=== PATIENT | female | born 1955 | race Caucasian/White ===

== ENCOUNTER 2017-11-02 12:42 | Emergency (ER) | payer OTHER, BC, SELFPAY ==
--- NOTE | 2017-11-02 13:02 | EDM.PDOC ---
ED HPI GENERAL MEDICAL PROBLEM - General Chief Complaint: Back Pain or Injury Stated Complaint: BACK PAIN/RIGHT HAND TINGLING Time Seen by Provider: 11/02/17 13:02 Source of Information: Reports: Patient History Limitations: Reports: No Limitations - History of Present Illness INITIAL COMMENTS - FREE TEXT/NARRATIVE: 62-year-old female presents to the ED with plans of right upper extremity paresthesias mostly in her forearm but does radiate up to her shoulder and she is aware of them in her hand. She's not had this before she woke up with this discomfort this morning. There is no neurological deficit in terms she is right handed dominant and she can feed herself etc. She's also complaining of upper right mid back pain. No known injuries. 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 She usually sleeps flat on her back on a twin bed. Onset: Today, Gradual Onset Date: 10/31/17 (Pain is been present in her upper back for 2 days. Her hand symptoms and arm symptoms started today since she awoke.) Duration: Hour(s): Location: Reports: Back (Right upper back), Upper Extremity, Right (Right upper extremity paresthesias.) Quality: Reports: Ache, Stabbing, Other Severity: Moderate (Hurts to take a deep breath pain is constant and sometimes feels like a hot poker or knife stabbing her in the back.) Improves with: Reports: None Worsens with: Reports: Other (Deep breathing), Movement Context: Reports: Lifting (Likely work-related injury from lifting pushing and pulling), Other. Denies: Activity, Exercise, Sick Contact, Trauma Associated Symptoms: Denies: No Other Symptoms, Confusion, Chest Pain, Cough, cough w sputum, Diaphoresis, Fever/Chills, Headaches, Loss of Appetite, Malaise , Nausea/Vomiting, Rash, Seizure, Shortness of Breath, Syncope, Weakness Treatments PHYSICAL THERAPY MANAGER: Reports: Acetaminophen Middle Back Pain Score (Numeric/FACES): 7 - Related Data Allergies Allergy/AdvReac Type Severity Reaction Status Date / Time No Known Allergies Allergy Verified 11/02/17 13:01 Home Meds: Home Meds Diclofenac Sodium [Voltaren] 50 mg PO TIDMEALS #15 tab.ec 11/02/17 [Rx] oxyCODONE HCl/Acetaminophen [Percocet 5-325 mg Tablet] 1 - 2 each PO Q4H PRN # 15 tablet 11/02/17 [Rx] Past Medical History Musculoskeletal History: Reports: Back Pain, Chronic, Osteoarthritis ( Intermittent problems with low back.) Social & Family History - Living Situation & Occupation Living situation: Reports: Occupation: Employed ED ROS GENERAL - Review of Systems Review Of Systems: See Below Constitutional: Reports: Malaise. Denies: Fever, Chills, Weakness, Fatigue, Diaphoresis, Decreased Appetite, Weight Loss HEENT: Reports: No Symptoms Respiratory: Reports: Pleuritic Chest Pain. Denies: Shortness of Breath, Cough , Sputum, Hemoptysis Cardiovascular: Reports: No Symptoms Endocrine: Reports: No Symptoms GI/Abdominal: Reports: No Symptoms : Reports: No Symptoms Musculoskeletal: Reports: Back Pain (Right mid upper back pain constant with intermittent spasms.). Denies: Neck Pain ( Pain does not radiate through her chest. Seems to radiate into her right upper extremity and down to her hand. Denies any neck pain) Skin: Reports: No Symptoms Neurological: Reports: Paresthesia (In the distribution of her right arm but follows no) Psychiatric: Reports: No Symptoms Hematologic/Lymphatic: Reports: No Symptoms Immunologic: Reports: No Symptoms ED EXAM,LOWER BACK PAIN/INJURY - Physical Exam Exam: See Below Exam Limited By: No Limitations General Appearance: Alert, WD/WN, Moderate Distress (Appears to be in discomfort.) Eye Exam: Bilateral Eye: Normal Inspection Throat/Mouth: Normal Inspection, Normal Lips, Normal Teeth, Normal Gums, Normal Oropharynx, Normal Voice Head: Atraumatic, Normocephalic Neck: Normal Inspection, Supple, Non-Tender, Full Range of Motion Respiratory/Chest: No Respiratory Distress, Lungs Clear, Normal Breath Sounds, No Accessory Muscle Use Cardiovascular: Normal Peripheral Pulses, Regular Rate, Rhythm, No Edema, No Gallop, No Murmur Back Exam: Muscle Spasm (Patient has marked paraspinal muscle spasm on the right side adjacent to the scapula. She has rib head subluxation clinically at the fourth fifth level.) Extremities: Normal Inspection, Normal Range of Motion, Non-Tender, No Pedal Edema, Normal Capillary Refill Neurological: Alert, Normal Mood/Affect, Normal Dorsiflexion, CN II-XII Intact, Normal Plantar Flexion, Normal Gait, Normal Reflexes, No Motor/Sensory Deficits , Oriented x 3, Other (Handgrip hand motor power and function is equal to the left side as compared to the right. Finger to nose rapid altering movements and pronator drift were negative.) Psychiatric: Normal Affect, Normal Mood Skin Exam: Warm, Dry, Intact, Normal Color, No Rash Course - Vital Signs Last Recorded V/S: Last Vital Signs Temp 36.6 C 11/02/17 12:59 Pulse 73 11/02/17 12:59 Resp 16 11/02/17 12:59 BP 157/82 H 11/02/17 12:59 Pulse Ox 100 11/02/17 12:59 - Radiology Interpretation Free Text/Narrative:: 62-year-old female presents to the ED for evaluation of paresthesias that she awoke with this morning in her right upper extremity. They don't follow any definitive dermatome and it's worse perhaps in her forearm that it is in her wrist or hand. It is more volar than dorsal. Secondly she's having upper right back pain of unclear etiology. She lifts a lot of heavy things in her workplace and should there is no carts that they are pulling and pushing around the department that are larger and heavier like a trolley versus a shopping cart. Examination reveals paraspinal muscle spasm right upper mid back particularly over the fourth fifth rib heads with with a rib head subluxation clinically. Patient was referred therefore to chiropractor for manipulation. I will place her on Percocet 5/3/25 milligram tablets one or 2 every 4-6 hours for pain relief and Voltaren 50 mg 3 times a day for the next 5 days to relieve pain and inflammation. Note given to excuse her from the work place for the next 3 days. Departure - Departure Time of Disposition: 13:14 Disposition: Home, Self-Care 01 Condition: Fair Clinical Impression: Paresthesia of right arm Acute thoracic back pain Qualifiers: Back pain laterality: right Qualified Code(s): M54.6 - Pain in thoracic spine - Discharge Information Prescriptions: Diclofenac Sodium [Voltaren] 50 mg PO TIDMEALS #15 tab.ec oxyCODONE HCl/Acetaminophen [Percocet 5-325 mg Tablet] 1 - 2 each PO Q4H PRN # 15 tablet PRN Reason: pain relief. Referrals: Carol Gerene FREIGHT FORWARDER [Primary Care Provider] - Forms: ED Department Discharge, ED Return to Work/School Form Additional Instructions: Evaluation the emergent today in regards to right upper extremity numbness and tingling which we call paresthesias. There is no evidence of neurological deficit is just any kind of stroke etc. Pain is referred into the upper extremity from her back. Examination of your back reveals rib head out of place at about the thoracic for 5 level. There is markedly associated paraspinal muscle spasm in this area. Rib head subluxations or means that is partially dislocated and most of the time chiropractor's are involved to put it back in its normal position. I would suggest chiropractic manipulation by either Dr. Lambert -his phone number is [phone]. [address] Dr. Brayden Jefferson or Shawna Ken his whom is also a chiropractor and works in the same office. Their number is [phone]. In the meantime you can use Voltaren 50 mg 3 times daily to reduce pain and inflammation and Percocet tablet 5/325 milligrams one tablet or 2 tablets every 6 hours as needed for pain relief. I would try one first to see how well it works 42. If you're taking a stronger pain medicine he cannot operate a motor vehicle. note given to excuse her from the work place for the next 3 days.
== END 2017-11-02 14:09 | disposition home or self-care (01) ==
LOC: JD.ED 12:42
DX: M54.6 Pain in thoracic spine (principal); R20.2 Paresthesia of skin
CPT/HCPCS: 99283

== ENCOUNTER 2020-05-11 21:24 | Emergency (ER) | payer BC, OTHER ==
--- NOTE | 2020-05-11 21:56 | EDM.PDOC ---
ED HPI GENERAL MEDICAL PROBLEM - General Chief Complaint: ENT Problem Stated Complaint: TOOTH PAIN ON ANTIBIOTIC MAKING HER FEEL WORSE Time Seen by Provider: 05/11/20 21:31 Source of Information: Reports: Patient History Limitations: Reports: No Limitations - History of Present Illness INITIAL COMMENTS - FREE TEXT/NARRATIVE: This is a 65-year-old female. Had a tooth infection for a week and a half. She saw her dentist who put her on some amoxicillin and after she finished the first course the infection was not gone and so he gave her some more amoxicillin. The infection continues to get worse. Now she feels like her right sinus is swollen and tender in her face has some mild swelling in that area she also has complaining of burning gums and she complains of soreness in her neck. Not had a fever. She is not had an unusual headache. But due to the symptoms she comes to the ER for evaluation. She also complains of right ear pain and right facial pain. He states she gets a little lightheaded and occasionally dizzy due to the pain but that is only short-lived. 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: Musculoskeletal History: Reports: Arthritis - Past Surgical History HEENT Surgical History: Reports: Oral Surgery, Tonsillectomy GI Surgical History: Reports: Cholecystectomy Female Surgical History: Reports: Hysterectomy Social & Family History - Tobacco Use Smoking Status *Q: Never Smoker - Caffeine Use Caffeine Use: Reports: Coffee, Soda, Tea - Recreational Drug Use Recreational Drug Use: No - Living Situation & Occupation Living situation: Reports: (), Alone Occupation: Employed ([employer]) ED ROS ENT - Review of Systems Review Of Systems: See Below Constitutional: Denies: Fever, Chills HEENT: Reports: Dental Pain, Other (Facial infection) Respiratory: Reports: No Symptoms Cardiovascular: Reports: No Symptoms Endocrine: Reports: No Symptoms GI/Abdominal: Reports: No Symptoms : Reports: No Symptoms Musculoskeletal: Reports: No Symptoms Skin: Reports: Other (Right facial swelling slightly) Neurological: Reports: Headache, Other (No unusual headache for her other than facial pain). Denies: Syncope, Difficulty Walking Psychiatric: Reports: No Symptoms Hematologic/Lymphatic: Reports: No Symptoms ED EXAM, ENT - Physical Exam Exam: See Below Exam Limited By: No Limitations General Appearance: Alert, WD/WN, No Apparent Distress Eye Exam: Bilateral Eye: Normal Inspection Ears: Normal External Exam, Normal Canal, Normal TMs Nose: Normal Inspection Mouth/Throat: Other (In her right upper jaw the center tooth on the right and the next tooth to it then she has a bridge of about 3 or 4 teeth. These are tender but the gum is not swollen. There is no drainage noted. She does have more puffiness and redness on her right cheek than she does on her left cheek. She is tender to the face on that right side up almost to the TMJ. She does not have any significant lymphadenopathy the right angle of the jaw and she has no redness or swelling or tenderness of her anterior neck. She does complain of some soreness in her neck when she moves it but she has full range of motion and there does not appear to be any nuchal rigidity.) Head: Normocephalic Neck: Supple, Non-Tender, Full Range of Motion, Other (No nuchal rigidity noted) Respiratory/Chest: No Respiratory Distress Back: Full Range of Motion Extremities: Normal Inspection, Normal Range of Motion Neurological: Alert, Oriented Psychiatric: Normal Affect, Normal Mood Skin: Warm, Dry Course - Vital Signs Last Recorded V/S: Last Vital Signs Temp 97.8 F 05/11/20 21:32 Pulse 90 05/11/20 21:32 Resp 16 05/11/20 21:32 BP 173/86 H 05/11/20 21:32 Pulse Ox 94 L 05/11/20 21:32 - Orders/Labs/Meds Orders: Active Orders 24 hr Category Date Time Status cefTRIAXone 1 GM with Lidocaine 1% 2.1 ML IM Med 05/11/20 22:00 Ordered cefTRIAXone [Rocephin] 1 gm Lidocaine 1% [Xylocaine 1%] 2.1 ml IM Q24H - Re-Assessments/Exams Free Text/Narrative Re-Assessment/Exam: 05/11/20 21:54 Spoke to the patient regarding getting a shot of antibiotics. We need to stop the amoxicillin I am going to put her on some clindamycin and she needs to take some probiotics with this medication. Also give her something for pain. Departure - Departure Time of Disposition: 21:56 Disposition: Home, Self-Care 01 Condition: Fair Clinical Impression: Dental infection, Pain, dental Maxillary sinusitis, acute Qualifiers: Recurrence: non-recurrent Qualified Code(s): J01.00 - Acute maxillary sinusitis, unspecified - Discharge Information *PRESCRIPTION DRUG MONITORING PROGRAM REVIEWED*: No *COPY OF PRESCRIPTION DRUG MONITORING REPORT IN PATIENT ДМИТРИЙ: No Prescriptions: clindamycin HCL [Cleocin] 300 mg PO Q6H #28 cap Acetaminophen/HYDROcodone [Liberty 325-5 MG] 1 - 2 tab PO Q6H PRN #20 tablet PRN Reason: Pain Instructions: Dental Abscess, [id number] Referrals: Alva Nettles MD [Primary Care Provider] - Additional Instructions: Get your prescriptions filled for the clindamycin and the Liberty, when you get the antibiotic asked the pharmacist what would be the best probiotic to take with the clindamycin so it will help prevent diarrhea, call your dentist on Wednesday morning because you need to be seen and have these teeth repaired, return to the ER if your symptoms worsen or you develop a fever greater than 101. Sepsis Event Note (ED) - Evaluation Sepsis Screening Result: No Definite Risk - Focused Exam Vital Signs: Vital Signs Temp Pulse Resp BP Pulse Ox 05/11/20 21:32 97.8 F 90 16 173/86 H 94 L - My Orders Last 24 Hours: My Active Orders 05/11/20 22:00 cefTRIAXone 1 GM with Lidocaine 1% 2.1 ML IM cefTRIAXone [Rocephin] 1 gm Lidocaine 1% [Xylocaine 1%] 2.1 ml IM Q24H - Assessment/Plan Last 24 Hours: My Active Orders 05/11/20 22:00 cefTRIAXone 1 GM with Lidocaine 1% 2.1 ML IM cefTRIAXone [Rocephin] 1 gm Lidocaine 1% [Xylocaine 1%] 2.1 ml IM Q24H
[2020-05-11] MEDS ORDERED: cefTRIAXone 1 GM, Lidocaine 1% 2.1 ML IM SCH ×2 (22:00)
== END 2020-05-11 22:07 | disposition home or self-care (01) ==
LOC: JD.ED 21:24
DX: K04.7 Periapical abscess without sinus (principal); J01.00 Acute maxillary sinusitis, unspecified; M19.90 Unspecified osteoarthritis, unspecified site; Z88.2 Allergy status to sulfonamides
CPT/HCPCS: 96372; 99282; J0696; J2001; 99283

== ENCOUNTER 2020-06-17 18:03 | Emergency (ER) | payer BC ==
--- NOTE | 2020-06-17 18:31 | EDM.PDOC ---
<Ashleigh Meneses - Last Filed: 06/17/20 19:38> ED HPI GENERAL MEDICAL PROBLEM - General Chief Complaint: ENT Problem Stated Complaint: TOOTH PAIN Time Seen by Provider: 06/17/20 18:30 - Related Data Allergies Allergy/AdvReac Type Severity Reaction Status Date / Time Sulfa (Sulfonamide Allergy Severe Diarrhea Verified 06/17/20 18:12 Antibiotics) Home Meds: Home Meds Acetaminophen/HYDROcodone [Brewster 325-5 MG] 1 tab PO Q6H PRN #20 tablet 06/17/20 [Rx] Cefdinir [Omnicef] 300 mg PO BID 9 Days #18 cap 06/17/20 [Rx] Course - Re-Assessments/Exams Free Text/Narrative Re-Assessment/Exam: 06/17/20 19:38 Patient was reassessed at bedside, Dr. Rangel has left as his shift ended at 7 PM today. Patient notes that she is feeling somewhat lightheaded, but states she is getting some pain relief. Patient will be discharged home with Dr. Rangel's previous plan. Departure - Departure Time of Disposition: 19:38 Disposition: Home, Self-Care 01 Clinical Impression: Pain, dental, Dental abscess - Discharge Information Prescriptions: Acetaminophen/HYDROcodone [Brewster 325-5 MG] 1 tab PO Q6H PRN #20 tablet PRN Reason: Pain Cefdinir [Omnicef] 300 mg PO BID 9 Days #18 cap Instructions: Dental Abscess, [id number] Referrals: Alva Nettles MD [Primary Care Provider] - Forms: ED Department Discharge Additional Instructions: Evaluation in the emergency room today in regards to recurrent dental pain in the right upper first and second bicuspid teeth. On examination it appears that there are temporary fillings caps on both teeth but there is significant decay of the cap on the right upper second bicuspid tooth. I suspect this is the culprit tooth but as you indicate both teeth seem to be very tender to touch. You indicated you have been having recurrent problems with these 2 teeth for the better part of 2 months. There is no abscess outside of the gingiva margin on examination. Been in the ED was intravenous antibiotic Rocephin 2 g which will start to work in 2 to 4 hours to reduce the infection in the root of these teeth. You were also given Toradol 30 mg IV and Dilaudid 0.5 mg IV with Zofran IV to prevent any nausea vomiting from the pain medication. The med at home is antibiotic Omnicef 300 mg 2 times daily starting tomorrow morning and use these for the next 9 days to clear up dental infection. Brewster 5/325 mg tabs 1 or 2 every 4-6 hours with food as needed for dental pain. You can continue Motrin 600 mg every 6 hours to reduce pain and inflammation as well. We discussed you were not able to get into a dentist that will perform a root canal on these teeth or remove them if this is the treatment of choice until July. Suggest seeking out a dentist in [place] for more urgent dental care .Suggest calling [facility] tomorrow and to see Dr Dat Leary or his partner. phone number is . <Krish Rangel - Last Filed: 06/20/20 02:46> ED HPI GENERAL MEDICAL PROBLEM - General Source of Information: Reports: Patient History Limitations: Reports: No Limitations - History of Present Illness INITIAL COMMENTS - FREE TEXT/NARRATIVE: 65-year-old female presents to the ED with constant persistent throbbing pain in the right upper teeth. She points towards her first and second bicuspid teeth right upper maxilla. She reports intermittent problems with these 2 teeth for the last 2 months. She has been on several courses of antibiotics with only temporary relief. She has made a dental appointment to have root canals performed on these teeth but cannot get in until July of this year. Dates she has a slip for the last 2 days due to the constant throbbing pain. Unable to eat. She is exhausted from lack of sleep. The patient went to the walk-in clinic and was referred to the ED. She has been on stronger pain medication then Aleve and ibuprofen but finds that it makes her quite sedated. Onset: Gradual Onset Date: 06/15/20 (And problems with upper to bicuspid teeth for the last 2 months. Recurrence of pain constant and throbbing in the teeth over the last 3 days.) Duration: Day(s):, Getting Worse, Waxing/Waning Location: Reports: Face (Pain right upper) Quality: Reports: Ache (Bicuspid teeth.), Pressure, Throbbing, Other Severity: Severe (Since pounding pain unable to sleep tonight on a 10) Improves with: Reports: None Worsens with: Reports: Eating Context: Denies: Activity, Exercise, Lifting, Sick Contact, Trauma, Other Associated Symptoms: Reports: Malaise, Nausea/Vomiting (Only nauseated at times.). 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: Musculoskeletal History: Reports: Arthritis - Past Surgical History HEENT Surgical History: Reports: Oral Surgery, Tonsillectomy GI Surgical History: Reports: Cholecystectomy Female Surgical History: Reports: Hysterectomy Social & Family History - Family History Family Medical History: Noncontributory - Tobacco Use Smoking Status *Q: Never Smoker Second Hand Smoke Exposure: No - Caffeine Use Caffeine Use: Reports: Coffee - Recreational Drug Use Recreational Drug Use: No - Living Situation & Occupation Living situation: Reports: (), Alone Occupation: Employed ([employer]) ED ROS ENT - Review of Systems Review Of Systems: See Below Constitutional: Reports: Malaise, Weakness, Fatigue, Decreased Appetite. Denies: Fever, Chills HEENT: Reports: Dental Pain (Upper bicuspid teeth.), Ear Pain (Is referred to the right ear.), Glasses Respiratory: Reports: No Symptoms Cardiovascular: Reports: No Symptoms Endocrine: Reports: Fatigue GI/Abdominal: Reports: Nausea (Nausea.) : Reports: Frequency, Incontinence (Urge and stress components.) Musculoskeletal: Reports: Neck Pain, Back Pain, Joint Pain (Her neck is worse as of late if she is clenching her teeth too often.) Skin: Reports: No Symptoms Neurological: Reports: No Symptoms Psychiatric: Reports: No Symptoms Hematologic/Lymphatic: Reports: No Symptoms Immunologic: Reports: No Symptoms ED EXAM, ENT - Physical Exam Exam: See Below Exam Limited By: No Limitations General Appearance: Alert, WD/WN, No Apparent Distress, Moderate Distress, Other (Temperature is 36.3. Heart rate is 72 and sinus respiratory is 18 with O2 sats of 96% room air BP is mildly elevated at 144/81. Patient is not known to be hypertensive.) Eye Exam: Bilateral Eye: Normal Inspection, PERRL Ears: Normal TMs Mouth/Throat: Dental Pain (Has dental pain coming from her right upper first and second bicuspid teeth. Appears there is a temporary cap on the second bicuspid tooth that is fractured and missing. I suspect this is the culprit tooth but she has significant referred pain to her right robyn-face and right ear.), Dental Tenderness (Right upper first and second bicuspid teeth.). 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 No: Lymphadenopathy (L) Respiratory/Chest: No Respiratory Distress, Lungs Clear, Normal Breath Sounds, No Accessory Muscle Use Cardiovascular: Normal Peripheral Pulses, Regular Rate, Rhythm, No Edema, No Gallop, No Murmur, No Rub Course - Vital Signs Last Recorded V/S: Last Vital Signs Temp 36.3 C 06/17/20 18:09 Pulse 72 06/17/20 18:09 Resp 18 06/17/20 18:09 BP 144/81 H 06/17/20 18:09 Pulse Ox 96 06/17/20 18:09 - Orders/Labs/Meds Meds: Medications Discontinued Medications Generic Name Dose Route Start Last Admin Trade Name Lana PRN Reason Stop Dose Admin Hydromorphone HCl 0.5 mg 06/17/20 18:40 06/17/20 18:55 Dilaudid IVPUSH 06/17/20 18:41 0.5 mg ONETIME ONE Administration Ceftriaxone Sodium 2 gm/ 100 mls @ 200 mls/hr 06/17/20 18:45 06/17/20 19:02 Sodium Chloride IV 200 mls/hr Q24H LORI Administration Ketorolac Tromethamine 30 mg 06/17/20 18:45 06/17/20 18:58 Toradol IVPUSH 30 mg ONETIME LORI Administration Ondansetron HCl 4 mg 06/17/20 18:39 07/27/20 18:54 Zofran IVPUSH 06/17/20 18:40 4 mg ONETIME ONE Administration Sodium Chloride 10 ml 06/17/20 18:38 06/17/20 19:01 Saline Flush FLUSH 10 ml ASDIRECTED PRN Administration Keep Vein Open - Radiology Interpretation Free Text/Narrative:: 65-year-old female with persistent dental pain or recurrent dental pain in the right upper bicuspid teeth both first and second on the right maxilla. These teeth have been problematic for her for the last 2 months. Reports that she has been on several courses of antibiotics. The last notation in our ER was May 11 when she was placed on clindamycin 300 mg 3 times daily for 8 days. Report that she did develop some diarrhea while on this medication. She also appreciates that she is on a stronger pain medication which makes her lightheaded and dizzy. There is no notation in the chart of receiving medication from the ED. Plan I am going to give her IV Rocephin 2 g IV in the hopes that this may alleviate some of the infection a bit quicker for her. Brewster 5/325 mg 1 or 2 every 4-6 hours necessary for pain relief in addition to Motrin 600 mg every 6 hours. Since she cannot get into an appropriate dentist within the next 6 weeks I will have her be seen by a dentist in [place] ideally. I provided her with phone numbers in [place] of dentists that I know. And she will be discharged on Omnicef 300 mg twice daily for the next 9 days to clear up dental infection Departure - Departure Time of Disposition: 19:48 Condition: Fair - Discharge Information *PRESCRIPTION DRUG MONITORING PROGRAM REVIEWED*: Not Applicable *COPY OF PRESCRIPTION DRUG MONITORING REPORT IN PATIENT ДМИТРИЙ: Not Applicable Sepsis Event Note (ED) - Evaluation Sepsis Screening Result: No Definite Risk
[2020-06-17] MEDS ORDERED: Sodium Chloride 0.9% 10 ML Syringe FLUSH PRN (18:38)
[2020-06-17] MEDS ORDERED: Ondansetron 4 MG/2 ML SDV IVPUSH ONE (18:39)
[2020-06-17] MEDS ORDERED: HYDROmorphone 0.5 MG/0.5 ML Syringe IVPUSH ONE (18:40)
[2020-06-17] MEDS ORDERED: cefTRIAXone 2 GM in Sodium Chloride 0.9% 100 ML IV SCH (18:45)
[2020-06-17] MEDS ORDERED: Ketorolac 30 MG/ML SDV IVPUSH SCH (18:45)
== END 2020-06-17 20:00 | disposition home or self-care (01) ==
LOC: JD.ED 18:03
DX: K04.7 Periapical abscess without sinus (principal); Z88.2 Allergy status to sulfonamides
CPT/HCPCS: 96365; 96375; 99282; J0696; J1170; J1885; J2405; J7050; 99283

== ENCOUNTER 2020-12-08 18:03 | Emergency (ER) | payer BC ==
[2020-12-08] MEDS ORDERED: Sodium Chloride 0.9% 10 ML Syringe FLUSH PRN (19:34)
[2020-12-08] MEDS ORDERED: cefTRIAXone 2 GM in Sodium Chloride 0.9% 100 ML IV ONE (19:34)
[2020-12-08] MEDS ORDERED: Sodium Chloride 0.9% 1,000 ML IV ONE (19:34)
[2020-12-08] MEDS ORDERED: Dexamethasone 10 MG/ML SDV IVPUSH ONE (19:34)
--- NOTE | 2020-12-08 19:45 | EDM.PDOC ---
ED HPI GENERAL MEDICAL PROBLEM - General Chief Complaint: ENT Problem Stated Complaint: NAUSEA, DIZZY, ANTIBIOTIC NOT WORKING Time Seen by Provider: 12/08/20 19:27 Source of Information: Reports: Patient, RN Notes Reviewed History Limitations: Reports: No Limitations - History of Present Illness INITIAL COMMENTS - FREE TEXT/NARRATIVE: Patient is a 65-year-old female who presents to the ED for the evaluation of her ongoing throat swelling and pain. She notes this has been going on for roughly 3 weeks. She was seen at the walk-in clinic sometime last week and started on antibiotics and prednisone was tested for Covid, and strep and was told that her white blood cell count was low, the Covid/strep was negative. Patient was started on antibiotics, she states she took 2 pills the first day and then 1 pill for the remainder of the course and was on 5 days of prednisone. She states she also had a CT of her neck that was within normal limits or she was told as such. She states she did take her antibiotics faithfully but nothing seems to be really getting much better. She notes that this all started with some dental issues, and March 2020. She has had a tonsillectomy. She has had no fever or chills, but has been nauseous, and is not really been wanting to eat or drink much due to the pain and nausea. 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 - Past Surgical History HEENT Surgical History: Reports: Oral Surgery, Tonsillectomy GI Surgical History: Reports: Cholecystectomy Female Surgical History: Reports: Hysterectomy Other Female Surgeries/Procedures: partial Social & Family History - Family History Family Medical History: No Pertinent Family History - Tobacco Use Tobacco Use Status *Q: Never Tobacco User Second Hand Smoke Exposure: No - Caffeine Use Caffeine Use: Reports: None - Recreational Drug Use Recreational Drug Use: No - Living Situation & Occupation Living situation: Reports: (), Alone Occupation: Employed ([employer]) ED ROS ENT - Review of Systems Review Of Systems: Comprehensive ROS is negative, except as noted in HPI. ED EXAM, ENT - Physical Exam Exam: See Below Exam Limited By: No Limitations General Appearance: Alert, WD/WN, No Apparent Distress Nose: Normal Inspection, Normal Mucousa, No Blood Mouth/Throat: Normal Inspection, Normal Gums, Normal Lips, Normal Teeth, Dry Mucous Membrane, Throat Pain. No: Pharyngeal Erythema, Tongue Swelling, Trismus, Uvular Deviation, Uvular Edema Neck: Normal Inspection, Supple, Full Range of Motion, Tender Lateral (anterior) Respiratory/Chest: No Respiratory Distress, Lungs Clear, Normal Breath Sounds, No Accessory Muscle Use, Chest Non-Tender Cardiovascular: Normal Peripheral Pulses, Regular Rate, Rhythm, No Edema GI/Abdominal: Normal Bowel Sounds, Soft, Non-Tender, No Distention, No Mass Extremities: Normal Inspection, Normal Capillary Refill Neurological: Alert, Oriented, Normal Cognition, No Motor/Sensory Deficits Psychiatric: Normal Affect, Normal Mood Skin: Warm, Dry, Intact, Normal Color, No Rash Course - Vital Signs Last Recorded V/S: Last Vital Signs Temp 97.5 F 12/08/20 18:10 Pulse Resp 16 12/08/20 18:10 BP Pulse Ox 97 12/08/20 18:10 - Orders/Labs/Meds Orders: Active Orders 24 hr Category Date Time Status Peripheral IV Care [RC] . DIRECTED Care 12/08/20 19:34 Active Sodium Chloride 0.9% [Normal Saline] 1,000 ml Med 12/08/20 19:34 Active IV ONETIME Sodium Chloride 0.9% [Saline Flush] Med 12/08/20 19:34 Active 10 ml FLUSH ASDIRECTED PRN Peripheral IV Insertion Adult [OM.PC] Routine Oth 12/08/20 19:33 Ordered Medication Orders Sodium Chloride (Normal Saline) 1,000 mls @ 999 mls/hr IV ONETIME ONE Stop: 12/08/20 20:34 Last Admin: 12/08/20 19:48 Dose: 999 mls/hr Documented by: DARVIN Sodium Chloride (Saline Flush) 10 ml FLUSH ASDIRECTED PRN PRN Reason: Keep Vein Open Last Admin: 12/08/20 19:44 Dose: 10 ml Documented by: HOWAELI Labs: Laboratory Tests 12/08/20 12/08/20 12/08/20 Range/Units 19:41 19:41 19:41 WBC 9.57 (3.98-10.04) K/mm3 RBC 4.85 (3.98-5.22) M/mm3 Hgb 14.9 (11.2-15.7) gm/dl Hct 44.7 (34.1-44.9) % MCV 92.2 (79.4-94.8) fl MCH 30.7 (25.6-32.2) pg MCHC 33.3 (32.2-35.5) g/dl RDW Std Deviation 46.8 H (36.4-46.3) fL Plt Count 319 (182-369) K/mm3 MPV 8.8 L (9.4-12.3) fl Neutrophils % (Manual) 51 (40-60) % Band Neutrophils % 0 (0-10) % Lymphocytes % (Manual) 39 (20-40) % Atypical Lymphs % 0 % Monocytes % (Manual) 8 (2-10) % Eosinophils % (Manual) 2 (0.7-5.8) % Basophils % (Manual) 0 L (0.1-1.2) Platelet Estimate Adequate RBC Morph Comment Normal Sodium 142 (136-145) mEq/L Potassium 3.7 (3.5-5.1) mEq/L Chloride 104 (98-107) mEq/L Carbon Dioxide 28 (21-32) mEq/L Anion Gap 13.7 (5-15) BUN 12 (7-18) mg/dL Creatinine 0.7 (0.55-1.02) mg/dL Est Cr Clr Drug Dosing 72.10 mL/min Estimated GFR (MDRD) > 60 (>60) mL/min BUN/Creatinine Ratio 17.1 (14-18) Glucose 100 (80-115) mg/dL Calcium 9.3 (8.5-10.1) mg/dL Total Bilirubin 0.4 (0.2-1.0) mg/dL AST 18 (15-37) U/L ALT 28 (14-59) U/L Alkaline Phosphatase 80 (46-116) U/L C-Reactive Protein 0.2 (<1.0) mg/dL Total Protein 7.3 (6.4-8.2) g/dl Albumin 3.9 (3.4-5.0) g/dl Globulin 3.4 gm/dL Albumin/Globulin Ratio 1.2 (1-2) Monoscreen Negative (NEGATIVE) Meds: Medications Generic Name Dose Route Start Last Admin Trade Name Freq PRN Reason Stop Dose Admin Sodium Chloride 1,000 mls @ 999 mls/hr 12/08/20 19:34 12/08/20 19:48 Normal Saline IV 12/08/20 20:34 999 mls/hr ONETIME ONE Administration Sodium Chloride 10 ml 12/08/20 19:34 12/08/20 19:44 Saline Flush FLUSH 10 ml ASDIRECTED PRN Administration Keep Vein Open Discontinued Medications Generic Name Dose Route Start Last Admin Trade Name Freq PRN Reason Stop Dose Admin Dexamethasone 10 mg 12/08/20 19:34 12/08/20 19:45 Decadron IVPUSH 12/08/20 19:35 10 mg ONETIME ONE Administration Ceftriaxone Sodium 2 gm/ 100 mls @ 200 mls/hr 12/08/20 19:34 12/08/20 19:49 Sodium Chloride IV 12/08/20 20:03 200 mls/hr ONETIME ONE Administration Ondansetron HCl 4 mg 12/08/20 19:55 12/08/20 20:00 Zofran IVPUSH 12/08/20 19:56 4 mg ONETIME ONE Administration - Re-Assessments/Exams Free Text/Narrative Re-Assessment/Exam: 12/08/20 19:53 Patient presents to the ED for her ongoing throat issue. For today's purposes, she does appear dry with her oral mucosa we will get IV fluids, and recheck labs, she will receive 2 g of Rocephin and 10mg IV dexamethasone and plan to send her home with an extended course of Omnicef. 12/08/20 20:27 Patient is just about done with her Rocephin, she will have her fluids increased to wide open so she can get these done. Patient states she is feeling a little bit better but would like to go home soon if possible. This is fine with me we will discharge her with Omnicef and have her follow-up with her regular doctor and dentist for further evaluation. Departure - Departure Time of Disposition: 20:27 Disposition: Home, Self-Care 01 Condition: Good Clinical Impression: Pharyngitis Qualifiers: Pharyngitis/tonsillitis etiology: other specified organisms Qualified Code(s): J02.8 - Acute pharyngitis due to other specified organisms - Discharge Information *PRESCRIPTION DRUG MONITORING PROGRAM REVIEWED*: No *COPY OF PRESCRIPTION DRUG MONITORING REPORT IN PATIENT ДМИТРИЙ: No Prescriptions: Cefdinir [Omnicef] 300 mg PO BID 7 Days #14 cap Instructions: Pharyngitis, [id number] Referrals: Alva Nettles MD [Primary Care Provider] - Forms: ED Department Discharge Additional Instructions: You were seen in this ER for your throat pain and swelling. You had labs drawn at today's visit and everything is unremarkable. Your mono screen which checks for mononucleosis is negative. You were given IV fluids, IV antibiotics, IV steroids, and a course of oral steroids to go home on. The IV steroids will provide best benefit in 4 to 6 hours, and should cause some of the swelling in your neck to go down. You will need to go to the pharmacy of your choice, clinic pharmacy, tomorrow and get the other antibiotics and take as prescribed. Highly recommend you follow-up with your regular doctor, Dr. Davis, and your dentist for further evaluation and management. Please return to the ER at any time if symptoms change or worsen. Sepsis Event Note (ED) - Evaluation Sepsis Screening Result: No Definite Risk - Focused Exam Vital Signs: Vital Signs Temp Resp Pulse Ox 12/08/20 18:10 97.5 F 16 97 - My Orders Last 24 Hours: My Active Orders 12/08/20 19:33 Peripheral IV Insertion Adult [OM.PC] Routine 12/08/20 19:34 Peripheral IV Care [RC] . DIRECTED Sodium Chloride 0.9% [Normal Saline] 1,000 ml IV ONETIME Sodium Chloride 0.9% [Saline Flush] 10 ml FLUSH ASDIRECTED PRN - Assessment/Plan Last 24 Hours: My Active Orders 12/08/20 19:33 Peripheral IV Insertion Adult [OM.PC] Routine 12/08/20 19:34 Peripheral IV Care [RC] . DIRECTED Sodium Chloride 0.9% [Normal Saline] 1,000 ml IV ONETIME Sodium Chloride 0.9% [Saline Flush] 10 ml FLUSH ASDIRECTED PRN
[2020-12-08] MEDS ORDERED: Ondansetron 4 MG/2 ML SDV IVPUSH ONE (19:55)
== END 2020-12-08 21:17 | disposition home or self-care (01) ==
LOC: JD.ED 18:03
DX: J02.8 Acute pharyngitis due to other specified organisms (principal); Z88.2 Allergy status to sulfonamides
CPT/HCPCS: 36415; 80053; 85007; 85027; 86140; 86308; 96365; 96375; 99283; J0696; J1100; J2405; J7030; J7050

== ENCOUNTER 2021-11-14 09:01 | Emergency (ER) | payer BC, SELFPAY ==
[2021-11-14] MEDS ORDERED: Sodium Chloride 0.9% 10 ML Syringe FLUSH PRN (09:29)
[2021-11-14] MEDS ORDERED: Sodium Chloride 0.9% 1,000 ML IV SCH (09:30)
--- NOTE | 2021-11-14 09:32 | EDM.PDOC ---
ED HPI GENERAL MEDICAL PROBLEM - General Chief Complaint: Neuro Symptoms/Deficits Stated Complaint: LEFT SIDE NUMBNESS Time Seen by Provider: 11/14/21 09:29 Source of Information: Reports: Patient, RN Notes Reviewed - History of Present Illness INITIAL COMMENTS - FREE TEXT/NARRATIVE: Pt has not felt well for 1 to 2 weeks. Has had facial numbness for about 2 to 3 weeks. Started having LUE and LLE "numbness around noon yesterday" that persists today. Generalized but no focal weakness. Hx of hyperlipidemia. No known hx Htn or CAD. No cough or fever, chills last evening. Feels weak and dizzy. Covid vaccintated times 2 but not boosted. No chest pain or difficulty breathing. This was called a stroke alert based on patients presenting sx. Last known well 12 noon yesterday 21 1/2 hrs ago. Headache Pain Score (Numeric/FACES): 7 - Related Data Allergies Allergy/AdvReac Type Severity Reaction Status Date / Time Sulfa (Sulfonamide Allergy Severe Diarrhea Verified 11/14/21 09:28 Antibiotics) Home Meds: Home Meds atorvaSTATin [Lipitor] 20 mg PO DAILY 11/14/21 [History] Past Medical History HEENT History: Reports: Other (See Below) Other HEENT History: tooth abcess [employer] History: Reports: Musculoskeletal History: Reports: Arthritis - Past Surgical History HEENT Surgical History: Reports: Oral Surgery, Tonsillectomy GI Surgical History: Reports: Cholecystectomy Female Surgical History: Reports: Hysterectomy Other Female Surgeries/Procedures: partial Social & Family History - Family History Family Medical History: No Pertinent Family History - Caffeine Use Caffeine Use: Reports: None - Living Situation & Occupation Living situation: Reports: (), Alone Occupation: Employed ([employer]) ED ROS GENERAL - Review of Systems Review Of Systems: See Below Constitutional: Reports: Chills, Weakness, Fatigue, Decreased Appetite. Denies: Fever HEENT: Reports: No Symptoms Respiratory: Denies: Shortness of Breath, Pleuritic Chest Pain, Cough Cardiovascular: Denies: Chest Pain GI/Abdominal: Reports: Decreased Appetite. Denies: Abdominal Pain, Nausea, Vo miting Musculoskeletal: Denies: Neck Pain, Shoulder Pain Skin: Reports: No Symptoms Neurological: Reports: Dizziness, Headache, Numbness. Denies: Trouble Speaking, Change in Speech, Gait Disturbance ED EXAM, NEURO - Physical Exam Exam: See Below General Appearance: Alert, Mild Distress Eye Exam: Bilateral Eye: PERRL Throat/Mouth: Normal Inspection Head Exam: Atraumatic Neck: Supple Respiratory/Chest: No Respiratory Distress, Lungs Clear, Normal Breath Sounds. No: Rhonchi, Prolonged Expiration Cardiovascular: Regular Rate, Rhythm GI/Abdominal: Soft, Non-Tender Neurological: Alert, Other (No upper extrem weakness, finger to nose normal, no drift, slight weakness to straight leg raise LLE, no facial droop, speech normal) #1 Interpretation EKG Date: 11/14/21 Rhythm: NSR [place]: Normal P-Wave: Present QRS: Normal ST-T: Normal QT: Normal Course - Vital Signs Last Recorded V/S: Last Vital Signs Temp 98.2 F 11/14/21 09:28 Pulse 86 11/14/21 13:22 Resp 18 11/14/21 09:28 BP 161/99 H 11/14/21 09:28 Pulse Ox 94 L 11/14/21 13:22 - Orders/Labs/Meds Orders: Active Orders 24 hr Category Date Time Status Peripheral IV Insertion Adult [OM.PC] Stat Oth 11/14/21 09:29 Ordered Labs: Laboratory Tests 11/14/21 11/14/21 11/14/21 Range/Units 09:23 09:31 09:31 WBC 6.26 (3.98-10.04) K/mm3 RBC 4.84 (3.98-5.22) M/mm3 Hgb 14.4 (11.2-15.7) gm/dl Hct 43.5 (34.1-44.9) % MCV 89.9 (79.4-94.8) fl MCH 29.8 (25.6-32.2) pg MCHC 33.1 (32.2-35.5) g/dl RDW Std Deviation 50.3 H (36.4-46.3) fL Plt Count 286 (182-369) K/mm3 MPV 9.0 L (9.4-12.3) fl Neut % (Auto) 40.7 (34.0-71.1) % Lymph % (Auto) 46.6 (19.3-51.7) % [place] % (Auto) 10.7 (4.7-12.5) % Eos % (Auto) 1.4 (0.7-5.8) Baso % (Auto) 0.3 (0.1-1.2) % Neut # (Auto) 2.54 (1.56-6.13) K/mm3 Lymph # (Auto) 2.92 (1.18-3.74) K/mm3 [place] # (Auto) 0.67 H (0.24-0.36) K/mm3 Eos # (Auto) 0.09 (0.04-0.36) K/mm3 Baso # (Auto) 0.02 (0.01-0.08) K/mm3 PT (9.7-12.0) SECONDS INR APTT (21.7-31.4) SECONDS Sodium (136-145) mEq/L Potassium (3.5-5.1) mEq/L Chloride (98-107) mEq/L Carbon Dioxide (21-32) mEq/L Anion Gap (5-15) BUN (7-18) mg/dL Creatinine (0.55-1.02) mg/dL Est Cr Clr Drug Dosing mL/min Estimated GFR (MDRD) (>60) mL/min BUN/Creatinine Ratio (14-18) Glucose (70-99) mg/dL POC Glucose 93 (70-99) mg/dL Calcium (8.5-10.1) mg/dL Magnesium (1.8-2.4) mg/dL Total Bilirubin (0.2-1.0) mg/dL AST (15-37) U/L ALT (14-59) U/L Alkaline Phosphatase (46-116) U/L C-Reactive Protein 0.2 (<1.0) mg/dL Total Protein (6.4-8.2) g/dl Albumin (3.4-5.0) g/dl Globulin gm/dL Albumin/Globulin Ratio (1-2) SARS-CoV-2 RNA (BALDEMAR) (NEGATIVE) 11/14/21 11/14/21 11/14/21 Range/Units 09:31 09:31 09:31 WBC (3.98-10.04) K/mm3 RBC (3.98-5.22) M/mm3 Hgb (11.2-15.7) gm/dl Hct (34.1-44.9) % MCV (79.4-94.8) fl MCH (25.6-32.2) pg MCHC (32.2-35.5) g/dl RDW Std Deviation (36.4-46.3) fL Plt Count (182-369) K/mm3 MPV (9.4-12.3) fl Neut % (Auto) (34.0-71.1) % Lymph % (Auto) (19.3-51.7) % [place] % (Auto) (4.7-12.5) % Eos % (Auto) (0.7-5.8) Baso % (Auto) (0.1-1.2) % Neut # (Auto) (1.56-6.13) K/mm3 Lymph # (Auto) (1.18-3.74) K/mm3 [place] # (Auto) (0.24-0.36) K/mm3 Eos # (Auto) (0.04-0.36) K/mm3 Baso # (Auto) (0.01-0.08) K/mm3 PT 10.6 (9.7-12.0) SECONDS INR 0.95 APTT 28.8 (21.7-31.4) SECONDS Sodium 144 (136-145) mEq/L Potassium 3.9 (3.5-5.1) mEq/L Chloride 106 (98-107) mEq/L Carbon Dioxide 27 (21-32) mEq/L Anion Gap 14.9 (5-15) BUN 16 (7-18) mg/dL Creatinine 0.7 (0.55-1.02) mg/dL Est Cr Clr Drug Dosing 71.14 mL/min Estimated GFR (MDRD) > 60 (>60) mL/min BUN/Creatinine Ratio 22.9 H (14-18) Glucose 94 (70-99) mg/dL POC Glucose (70-99) mg/dL Calcium 9.0 (8.5-10.1) mg/dL Magnesium 2.0 (1.8-2.4) mg/dL Total Bilirubin 0.5 (0.2-1.0) mg/dL AST 22 (15-37) U/L ALT 29 (14-59) U/L Alkaline Phosphatase 89 (46-116) U/L C-Reactive Protein (<1.0) mg/dL Total Protein 7.6 (6.4-8.2) g/dl Albumin 4.1 (3.4-5.0) g/dl Globulin 3.5 gm/dL Albumin/Globulin Ratio 1.2 (1-2) SARS-CoV-2 RNA (BALDEMAR) (NEGATIVE) 11/14/21 Range/Units 10:15 WBC (3.98-10.04) K/mm3 RBC (3.98-5.22) M/mm3 Hgb (11.2-15.7) gm/dl Hct (34.1-44.9) % MCV (79.4-94.8) fl MCH (25.6-32.2) pg MCHC (32.2-35.5) g/dl RDW Std Deviation (36.4-46.3) fL Plt Count (182-369) K/mm3 MPV (9.4-12.3) fl Neut % (Auto) (34.0-71.1) % Lymph % (Auto) (19.3-51.7) % [place] % (Auto) (4.7-12.5) % Eos % (Auto) (0.7-5.8) Baso % (Auto) (0.1-1.2) % Neut # (Auto) (1.56-6.13) K/mm3 Lymph # (Auto) (1.18-3.74) K/mm3 [place] # (Auto) (0.24-0.36) K/mm3 Eos # (Auto) (0.04-0.36) K/mm3 Baso # (Auto) (0.01-0.08) K/mm3 PT (9.7-12.0) SECONDS INR APTT (21.7-31.4) SECONDS Sodium (136-145) mEq/L Potassium (3.5-5.1) mEq/L Chloride (98-107) mEq/L Carbon Dioxide (21-32) mEq/L Anion Gap (5-15) BUN (7-18) mg/dL Creatinine (0.55-1.02) mg/dL Est Cr Clr Drug Dosing mL/min Estimated GFR (MDRD) (>60) mL/min BUN/Creatinine Ratio (14-18) Glucose (70-99) mg/dL POC Glucose (70-99) mg/dL Calcium (8.5-10.1) mg/dL Magnesium (1.8-2.4) mg/dL Total Bilirubin (0.2-1.0) mg/dL AST (15-37) U/L ALT (14-59) U/L Alkaline Phosphatase (46-116) U/L C-Reactive Protein (<1.0) mg/dL Total Protein (6.4-8.2) g/dl Albumin (3.4-5.0) g/dl Globulin gm/dL Albumin/Globulin Ratio (1-2) SARS-CoV-2 RNA (BALDEMAR) Negative (NEGATIVE) Meds: Medications Discontinued Medications Generic Name Dose Route Start Last Admin Trade Name Freq PRN Reason Stop Dose Admin Sodium Chloride 1,000 mls @ 999 mls/hr 11/14/21 09:30 11/14/21 10:14 Normal Saline IV 999 mls/hr ONETIME LORI Administration Sodium Chloride 10 ml 11/14/21 09:29 11/14/21 10:14 Sodium Chloride 0.9% 10 Ml Syringe FLUSH 10 ml ASDIRECTED PRN Administration Keep Vein Open - Re-Assessments/Exams Free Text/Narrative Re-Assessment/Exam: 11/14/21 15:00. Head CT normal. Labs normal. Remained neurologically intact. Have ordered MRI to be done outpatient early next week. Pt is in agreement with that plan. Departure - Departure Time of Disposition: 13:05 Disposition: Home, Self-Care 01 Condition: Fair Clinical Impression: Left leg paresthesias, Arm paresthesia, left, Facial paresthesia - Discharge Information Instructions: Paresthesia, [id number] Referrals: Alva Nettles MD [Primary Care Provider] - Forms: ED Department Discharge Additional Instructions: Your labs and head CT today were normal, no evidence for stroke. Order for MRI has been sent to Radiology. They will call you Wednesday morning with a time to come in and get that done. See Dr Olmos next Wednesday or ., Call Wednesday AM for appt. Return to ED as needed if symptoms worsening in any way. Sepsis Event Note (ED) - Focused Exam Vital Signs: Vital Signs Temp Pulse Resp BP Pulse Ox 11/14/21 13:22 86 94 L 11/14/21 09:28 98.2 F 88 18 161/99 H 96 - My Orders Last 24 Hours: My Active Orders 11/14/21 09:29 Peripheral IV Insertion Adult [OM.PC] Stat - Assessment/Plan Last 24 Hours: My Active Orders 11/14/21 09:29 Peripheral IV Insertion Adult [OM.PC] Stat
--- NOTE | 2021-11-14 10:00 | CT ---
Head CT Technique: Multiple axial sections through the brain were obtained. Intravenous contrast was not utilized. Reconstructed coronal and sagittal images were also obtained. Comparison: No prior intracranial imaging is available. Findings: Ventricles along with basal cisterns and sulci over the convexities are within normal limits for the patient's age. No abnormal parenchymal densities are seen. No evidence of intracranial hemorrhage is seen. No midline shift or mass-effect is seen. Bone window settings were reviewed. Visualized mastoid sinuses and paranasal sinuses show nothing acute. No acute calvarial abnormality is seen. Impression: 1. Nothing acute is seen on noncontrast head CT study. 2. Given the patient's symptoms, MRI could be considered to further evaluate. Diagnostic code #1
== END 2021-11-14 14:00 | disposition home or self-care (01) ==
LOC: JD.ED 09:01
DX: R20.2 Paresthesia of skin (principal); R20.0 Anesthesia of skin; R29.810 Facial weakness; Z88.2 Allergy status to sulfonamides; Z79.899 Other long term (current) drug therapy; Z20.822 Contact with and (suspected) exposure to COVID-19
CPT/HCPCS: 36415; 70450; 80053; 82947; 83735; 85025; 85610; 85730; 86140; 87635; 93005; 99284; J7030; U0002

== ENCOUNTER 2022-08-02 05:09 | Emergency (ER) | payer BC, OTHER ==
[2022-08-02] MEDS ORDERED: Sodium Chloride 0.9% 10 ML Syringe FLUSH PRN (05:39)
[2022-08-02] MEDS ORDERED: Metoclopramide 10 MG/2 ML SDV IVPUSH ONE (05:39)
[2022-08-02] MEDS ORDERED: diphenhydrAMINE 50 MG/ML SDV IVPUSH ONE (05:42)
[2022-08-02] MEDS ORDERED: Ketorolac 30 MG/ML SDV IVPUSH ONE (05:42)
[2022-08-02] MEDS ORDERED: Sodium Chloride 0.9% 1,000 ML IV SCH (05:45)
[2022-08-02] MEDS ORDERED: Iopamidol 612 MG/ML 100 ML Bottle IVPUSH ONE (06:01)
[2022-08-02 06:23] LABS: ESTIMATED GFR 70 mL/min (>60)
[2022-08-02] MEDS ORDERED: Diazepam 5 MG Tab PO ONE (08:34)
[2022-08-02] MEDS ORDERED: Gabapentin 300 MG Cap PO ONE (08:34)
[2022-08-02] MEDS ORDERED: Polyethylene Glycol 3350 Powder 17 GM Packet PO ONE (08:34)
[2022-08-02] MEDS ORDERED: Magnesium Oxide 400 MG Tab PO ONE (08:35)
== END 2022-08-02 09:05 | disposition home or self-care (01) ==
LOC: JD.ED 05:09
DX: M79.2 Neuralgia and neuritis, unspecified (principal); R42 Dizziness and giddiness; K59.09 Other constipation; Z79.899 Other long term (current) drug therapy; Z20.822 Contact with and (suspected) exposure to COVID-19; Z88.2 Allergy status to sulfonamides
CPT/HCPCS: 36415; 70450; 74177; 80053; 81001; 83735; 84484; 85025; 86140; 87635; 93005; 96361; 96374; 96375; 99284; A9270; J1200; J1885; J2765; J3360; J3490; J7030; Q9967; 93010; U0002

== ENCOUNTER 2022-11-17 22:29 | Emergency (ER) | payer BC, OTHER ==
[2022-11-18] MEDS ORDERED: HYDROmorphone 1 MG/ML Syringe IVPUSH ONE (01:12)
[2022-11-18] MEDS ORDERED: Sodium Chloride 0.9% 1,000 ML IV SCH (01:15)
[2022-11-18 02:30] LABS: ESTIMATED GFR 98 mL/min (>60)
[2022-11-18] MEDS ORDERED: Sodium Chloride 0.9% 10 ML Syringe FLUSH ONE (02:39)
[2022-11-18] MEDS ORDERED: Iopamidol 755 Mg/ML 100 ML Bottle IVPUSH ONE (02:39)
[2022-11-18] MEDS ORDERED: Sodium Chloride 0.9% 100 ML IV SCH (02:45)
== END 2022-11-18 03:39 | disposition home or self-care (01) ==
LOC: JD.ED 22:29
DX: M79.621 Pain in right upper arm (principal); R20.0 Anesthesia of skin; R20.2 Paresthesia of skin; I50.9 Heart failure, unspecified; M19.90 Unspecified osteoarthritis, unspecified site; Z88.2 Allergy status to sulfonamides; Z79.899 Other long term (current) drug therapy
CPT/HCPCS: 36415; 70450; 71275; 82550; 82565; 96361; 96374; 99284; J1170; J3490; J7030; Q9967

== ENCOUNTER 2024-02-28 16:13 | Emergency (ER) | payer BC, OTHER ==
[2024-02-28 16:59] LABS: BASOPHILS PERCENT AUTO 0.4 % (0.0-1.0); EOSINOPHILS ABSOLUTE AUTO 0.1 K/mm3 (0.0-0.4); EOSINOPHILS PERCENT AUTO 1.4 % (0.0-6.0); HEMATOCRIT 44.1 % (37.0-47.0); IMMATURE GRAN ABSOLUTE AUTO 0.03 K/mm3 (0.00-0.05); IMMATURE GRAN PERCENT AUTO 0.4 % (0.0-0.4); LYMPHOCYTES ABSOLUTE AUTO 3.2 K/mm3 (1.0-4.8); MEAN CORPUSCULAR HEMOGLOBIN 31.1 pg (28.0-32.0); MEAN CORPUSCULAR VOLUME 91.3 fl (83.0-99.0); MEAN PLATELET VOLUME 9.1 fl (9.4-12.3); MONOCYTES ABSOLUTE AUTO 0.6 K/mm3 (0.0-0.8); MONOCYTES PERCENT AUTO 8.1 % (0.0-8.0); NEUTROPHILS ABSOLUTE AUTO 3.9 K/mm3 (1.8-7.7); NEUTROPHILS PERCENT AUTO 49.7 % (41.0-71.0); PLATELET COUNT,PLT 267 K/mm3 (150-400); RED BLOOD CELL COUNT 4.83 M/mm3 (4.10-5.30); WHITE BLOOD CELL COUNT,WBC 7.88 K/mm3 (3.9-11.3)
[2024-02-28 17:23] LABS: A/G RATIO 1.2 (1-2); ANION GAP 13.5 (5-15); BILIRUBIN TOTAL 0.5 mg/dL (0.2-1.0); BUN/CREATININE RATIO 18.6 (14-18); C-REACTIVE PROTEIN 0.18 mg/dL (<0.30); CALCIUM 9.4 mg/dL (8.5-10.1); CREATININE 0.7 mg/dL (0.55-1.02); EST CRCL DRUG DOSING (CG) 69.21 mL/min; MAGNESIUM 1.8 mg/dL (1.8-2.4); POTASSIUM,K 3.5 mEq/L (3.5-5.1); PROTEIN TOTAL,TP 7.4 g/dl (6.4-8.2)
[2024-02-28 17:30] LABS: CORONAVIRUS COVID-19 NAA NEGATIVE (NEGATIVE); INFLUENZA A NAA NEGATIVE (NEGATIVE); RESPIRATORY SYNCYTIAL VIR NAA NEGATIVE (NEGATIVE)
[2024-02-28] MEDS: Orphenadrine 60 MG/2 ML Inj IM ONE (18:04)
[2024-02-28] MEDS: Sodium Chloride 0.9% 1,000 ML IV SCH (18:04)
[2024-02-28] MEDS: Metoclopramide 10 MG/2 ML SDV IVPUSH ONE (18:04)
[2024-02-28] MEDS: diphenhydrAMINE 50 MG/ML SDV IVPUSH ONE (18:04)
[2024-02-28] MEDS: Sodium Chloride 0.9% 10 ML Syringe FLUSH PRN (18:11)
[2024-02-28 18:24] LABS: APPEARANCE,URINE CLEAR (Clear); BILIRUBIN,URINE NEGATIVE (Negative); COLOR,URINE YELLOW (Yellow); GLUCOSE,URINE NEGATIVE (Negative); KETONES,URINE NEGATIVE (Negative); LEUKOCYTE ESTERASE,URINE NEGATIVE (Negative); NITRITE,URINE NEGATIVE (Negative); OCCULT BLOOD,URINE TRACE-INTACT (Negative); PROTEIN,URINE NEGATIVE (Negative); UROBILINOGEN,URINE 0.2 (0.2-1.0)
[2024-02-28 18:34] LABS: BACTERIA,URINE FEW /hpf (FEW); MUCUS,URINE FEW /hpf (FEW); RBC,URINE 0-5 /hpf (0-5); SQUAMOUS EPITHELIAL CELLS,UR 0-5 /hpf (0-5); WBC,URINE 0-5 /hpf (0-5)
== END 2024-02-28 19:27 | disposition home or self-care (01) ==
LOC: JD.ED 16:13
DX: G44.209 Tension-type headache, unspecified, not intractable (principal); Z88.2 Allergy status to sulfonamides; Z79.899 Other long term (current) drug therapy; Z79.82 Long term (current) use of aspirin; Z86.19 Personal history of other infectious and parasitic diseases; Z90.49 Acquired absence of other specified parts of digestive tract
CPT/HCPCS: 0241U; 36415; 70450; 80053; 81001; 83735; 85025; 86140; 96372; 96374; 96375; 99285; J1200; J2360; J2765; J3490; J7030

== ENCOUNTER 2025-01-07 11:19 | Emergency (ER) | payer BC, OTHER ==
[2025-01-07] MEDS ORDERED: Sodium Chloride 0.9% 10 ML Syringe FLUSH PRN (13:57)
[2025-01-07 14:40] LABS: BASOPHILS PERCENT AUTO 0.3 % (0.0-1.0); EOSINOPHILS ABSOLUTE AUTO 0.1 K/mm3 (0.0-0.4); EOSINOPHILS PERCENT AUTO 1.2 % (0.0-6.0); HEMATOCRIT 42.4 % (37.0-47.0); HEMOGLOBIN 14.5 gm/dl (12.0-16.0); IMMATURE GRAN ABSOLUTE AUTO 0.01 K/mm3 (0.00-0.05); IMMATURE GRAN PERCENT AUTO 0.1 % (0.0-0.4); LYMPHOCYTES ABSOLUTE AUTO 3.3 K/mm3 (1.0-4.8); LYMPHOCYTES PERCENT AUTO 42.8 % (24.0-44.0); MEAN CORPUSCULAR HEMOGLOBIN 30.8 pg (28.0-32.0); MEAN CORPUSCULAR HGB CONC 34.2 g/dl (32.0-36.0); MEAN PLATELET VOLUME 9.2 fl (9.4-12.3); MONOCYTES ABSOLUTE AUTO 0.8 K/mm3 (0.0-0.8); MONOCYTES PERCENT AUTO 9.8 % (0.0-8.0); NEUTROPHILS ABSOLUTE AUTO 3.6 K/mm3 (1.8-7.7); NEUTROPHILS PERCENT AUTO 45.8 % (41.0-71.0); PLATELET COUNT,PLT 254 K/mm3 (150-400); RED BLOOD CELL COUNT 4.71 M/mm3 (4.10-5.30); WHITE BLOOD CELL COUNT,WBC 7.78 K/mm3 (3.9-11.3)
[2025-01-07 15:04] LABS: A/G RATIO 1.1 (1-2); ALBUMIN 3.7 g/dl (3.4-5.0); ANION GAP 10.5 (5-15); BILIRUBIN TOTAL 0.5 mg/dL (0.2-1.0); CALCIUM 9.2 mg/dL (8.5-10.1); CREATININE 0.7 mg/dL (0.55-1.02); EST CRCL DRUG DOSING (CG) 68.25 mL/min; POTASSIUM,K 3.5 mEq/L (3.5-5.1); PROTEIN TOTAL,TP 7.1 g/dl (6.4-8.2)
[2025-01-07 15:32] LABS: TSH 2.709 uIU/mL (0.358-3.74)
[2025-01-07 15:58] LABS: APPEARANCE,URINE CLEAR (Clear); BILIRUBIN,URINE NEGATIVE (Negative); COLOR,URINE YELLOW (Yellow); GLUCOSE,URINE NEGATIVE (Negative); KETONES,URINE NEGATIVE (Negative); LEUKOCYTE ESTERASE,URINE NEGATIVE (Negative); NITRITE,URINE NEGATIVE (Negative); OCCULT BLOOD,URINE TRACE-INTACT (Negative); PH,URINE 6.5 (5.0-8.0); PROTEIN,URINE NEGATIVE (Negative); UROBILINOGEN,URINE 0.2 (0.2-1.0)
[2025-01-07 16:20] LABS: BACTERIA,URINE FEW /hpf (FEW); EPITHELIAL CELLS,URINE 0-5 /hpf (0-5); MUCUS,URINE NOT SEEN /hpf (FEW); RBC,URINE 0-5 /hpf (0-5); WBC,URINE 0-5 /hpf (0-5)
[2025-01-07] MEDS: droPERidol 2.5 MG/ML SDV IV ONE (18:35)
[2025-01-07] MEDS: Ketorolac 15 MG/ML SDV IVPUSH ONE (18:35)
== END 2025-01-07 18:50 | disposition home or self-care (01) ==
LOC: JD.ED 11:19
DX: R07.89 Other chest pain (principal); G43.909 Migraine, unspecified, not intractable, without status migrainosus; R20.2 Paresthesia of skin; E78.00 Pure hypercholesterolemia, unspecified; I50.9 Heart failure, unspecified; Z88.2 Allergy status to sulfonamides; Z79.899 Other long term (current) drug therapy; Z79.82 Long term (current) use of aspirin; Z90.710 Acquired absence of both cervix and uterus
CPT/HCPCS: 36415; 80053; 81001; 83690; 84443; 84484; 85025; 93005; 96374; 96375; 99285; J1885; 93010; 99284